=== PATIENT | male | born 1985 | race Caucasian/White ===

== ENCOUNTER 2020-10-29 11:22 | Inpatient (IN) | payer OTHER ==
[~2020-10-29] VITALS: Ht 177.8 cm; Wt 88.3 kg
[2020-10-29 16:55] VITALS: BP 132/77
[2020-10-29 17:14] LABS: BASO # 0.1 10*3/uL (0.0-0.1); BASO % 1.2 % (0.0-1.0); EOS # 0.4 10*3/uL (0.0-0.4); EOS % 7.4 % (1.0-4.0); HEMATOCRIT 41.3 % (42.0-52.0); LYMPH # 2.1 10*3/uL (1.3-4.4); LYMPH % 36.8 % (27.0-41.0); MEAN CELL VOLUME 87.3 fl (80.0-94.0); MEAN CORPUSCULAR HGB 29.2 pg (27.0-31.0); MEAN CORPUSCULAR HGB CONC 33.4 g/dl (33.0-37.0); MEAN PLATELET VOLUME 9.8 fl (9.6-12.3); MONO % 17.2 % (3.0-9.0); NEUT # 2.1 10*3/uL (2.3-7.9); PLATELET COUNT AUTOMATED 223 10*3/uL (130-400); RED BLOOD COUNT 4.73 10*6/uL (4.50-5.90); WHITE BLOOD COUNT 5.7 10*3/uL (4.8-10.8)
[2020-10-29 17:28] LABS: ALBUMIN 3.8 gm/dl (3.1-4.5); ALKALINE PHOSPHATASE 84 U/L (45-117); BUN 18 mg/dl (7-24); CHLORIDE 107 mmol/L (98-107); ETHYL ALCOHOL < 3.0 mg/dl (<3); POTASSIUM 4.1 mmol/L (3.5-5.1); SGOT/AST 102 IU/L (3-35); SGPT/ALT 301 U/L (12-78); SODIUM 140 mmol/L (136-145); TOTAL PROTEIN 7.6 gm/dL (6.4-8.2)
[2020-10-29] MEDS ORDERED: SUBOXONE 8 MG-1 EACH SL ×2 (18:55→20:11)
[2020-10-29 19:05] LABS: BILIRUBIN Negative (Negative); BLOOD Negative (Negative); CLARITY Cloudy (Clear); COLOR Yellow (Yellow); GLUCOSE Negative (Negative); KETONE Negative (Negative); LEUKO ESTERASE Negative (Negative); NITRITE Negative (Negative); PH 7.5 (4.5-8.0)
[2020-10-29 19:23] LABS: BACTERIA 3+
[2020-10-29 20:41] VITALS: BP 101/77
[2020-10-30] VITALS: BP 106/61
[2020-10-30 08:00] VITALS: BP 110/60
[2020-10-30 13:07] LABS: URINE AMPHETAMINES < 1000 (1000ng/ml); URINE BARBITURATES < 200 (200ng/ml); URINE BENZODIAZEPINES < 200 (200ng/ml); URINE CANNABINOIDS (THC) < 50 (50ng/ml); URINE COCAINE > 300 (300ng/ml); URINE METHADONE < 300 (300ng/ml); URINE OPIATES < 300 (300ng/ml); URINE PHENCYCLIDINE < 25 (25ng/ml)
[2020-10-30 16:00] VITALS: BP 123/50
[2020-10-30 20:00] VITALS: BP 121/59
[2020-10-31] VITALS: BP 122/64
[2020-10-31 08:00] VITALS: BP 139/59
== END 2020-10-31 17:44 | disposition home or self-care (01) | DRG 774 ==
LOC: 5E 11:22
PROVIDERS: Social Worker Clinical; ADMIT Internal Medicine; ATTEND Internal Medicine
DX: F14.13 Cocaine abuse, unspecified with withdrawal (principal); F10.232 Alcohol dependence with withdrawal with perceptual disturbance; G25.81 Restless legs syndrome; F32.9 Major depressive disorder, single episode, unspecified; R19.7 Diarrhea, unspecified; D64.9 Anemia, unspecified; D70.9 Neutropenia, unspecified; R74.01 Elevation of levels of liver transaminase levels; F17.210 Nicotine dependence, cigarettes, uncomplicated